=== PATIENT | female | born 1975 | race Two or more races ===

== ENCOUNTER 2024-03-20 17:19 | Emergency (ER) | payer MEDICAID, SELFPAY ==
--- NOTE | 2024-03-20 17:22 | EKG_ITS ---
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
[2024-03-20 17:35] VITALS: BP 147/91; PULSE 63; RESP 18; TEMP 37.2; O2SAT 96; BMI 50.4
--- NOTE | 2024-03-20 17:35 | XR_ITS ---
Examination: PA lateral chest 2 views TECHNIQUE: Upright PA lateral chest 2 views Exam date and time: March 20, 2024 1746 hours Comparison May 06, 2021 INDICATIONS: Chest pain beginning 3 days ago FINDINGS: Normal heart size No pneumonia or pulmonary edema The osseous structures are intact IMPRESSION: No active disease
--- NOTE | 2024-03-20 17:36 | PD.EDRME ---
Rapid Medical Screening Exam RME Arrival date/time: 03/20/24 17:19 49-year-old female presents emergency department complains of chest pain and back pain Chief Complaint: Chest Pain Time Seen by Provider: 03/20/24 17:22
[2024-03-20 18:22] LABS: Basophils # (Auto) 0.1 Thou/mm3 (0.0-0.2); Basophils % (Auto) 1 % (0-2.5); Eosinophils # (Auto) 1.4 Thou/mm3 (0.0-0.5); Eosinophils % (Auto) 16 % (0-10); Hematocrit 37.7 % (36.0-46.0); Hemoglobin 11.9 g/dL (12.0-16.0); Immature Granulocytes % (Auto) 0 % (0-0); Immature Granulocytes Auto 0.02 Thou/mm3 (0.00-0.00); Lymphocytes # (Auto) 1.8 Thou/mm3 (1.0-4.8); Lymphocytes % (Auto) 21 % (10-50); Mean Corpuscular HGB Conc 31.6 g/dl (31.0-37.0); Mean Corpuscular Hemoglobin 25.2 pg (25.0-35.0); Mean Corpuscular Volume 80 fL (80-100); Monocytes # (Auto) 0.5 Thou/mm3 (0.0-0.8); Monocytes % (Auto) 5 % (0-12); Neutrophils # (Auto) 5.1 Thou/mm3 (1.8-7.7); Neutrophils % (Auto) 58 % (37-80); Nucleated Red Blood Cell % 0 /100 WBC (0); Platelet Count 250 Thou/mm3 (140-440); RDW Standard Deviation 52.5 fL (36.4-46.3); Red Blood Count 4.72 Miln/mm3 (4.00-5.20); White Blood Count 8.8 Thou/mm3 (3.6-11.0)
[2024-03-20 18:54] LABS: HCG,Qualitative Serum Negative
[2024-03-20 18:58] LABS: B-Type Natriuretic Peptide 20 pg/mL (0-100)
[2024-03-20 18:59] LABS: Alanine Aminotransferase 21 U/L (10-49); Albumin, Serum 4.2 gm/dL (3.5-5.0); Albumin/Globulin Ratio 1.5 (1.2-2.2); Alkaline Phosphatase 97 U/L (46-116); Anion Gap 4 (7-16); Aspartate Amino Transferase 26 U/L (0-34); BUN/Creatinine Ratio 11 Ratio (12-20); Bilirubin,Total 0.4 mg/dL (0.3-1.2); Blood Urea Nitrogen 9 mg/dL (9-23); Calcium 9.5 mg/dL (8.3-10.6); Calcium (Corrected) 9.5 mg/dL (8.5-10.1); Carbon Dioxide 28.1 mMol/L (20.0-31.0); Chloride 106 mMol/L (98-107); Creatinine (Component) 0.8 mg/dL (0.6-1.3); Estimated Creatinine Clearance 114.4 mL/min (>60); Globulin 2.8 gm/dL (2.3-3.5); Glucose 93 mg/dL (74-106); Lipase 46 U/L (12-53); Osmolality,Calculated 274 (275-295); Potassium 3.9 mMol/L (3.4-5.1); Sodium 138 mMol/L (136-145); Troponin I < 0.002 ng/mL (0.0-0.045); eGFR > 60 See Note
--- NOTE | 2024-03-20 19:31 | PD.EDCHEST ---
ED Chest Pain RME/HPI General Chief Complaint: Chest Pain Stated Complaint: LEFT SIDED CHEST PAIN RAD TO BACK AND LEFT ARM Time Seen by Provider: 03/20/24 17:22 Source: patient Arrival date/time: 03/20/24 17:19 This is a 49-year-old female presented to the emergency department with complaints of left chest pain that radiates from her back into her left arm. 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 Patient denied no nausea no vomiting no diaphoresis or retrosternal radiating pain. Patient did not attempt any interventions or take any OTC medications prior to ED visit. Patient denies any other associated symptoms or aggravating factors. No modifying factors, no radiation, no migration. Mode of arrival: ambulatory Limitations: no limitations RME / HPI RME / HPI narrative: 03/20/24 17:19 49-year-old female presents emergency department complains of chest pain and back pain Related Data Previous Rx's ?Medication ?Instructions ?Recorded acetaminophen 650 mg 650 mg PO Q8H PRN fever or pain 05/13/19 tablet,extended release #30 tabs benzonatate 100 mg capsule See Rx Instructions .Route 05/13/19 (Alenasalon Perlchana) .COMPLEX cough #30 caps cetirizine 5 mg-pseudoephedrine ER 1 tab PO Q12H #20 tabs 05/13/19 120 mg tablet,extended release,12hr (Zyrtec-D) ibuprofen 600 mg tablet 600 mg PO Q8H PRN fever or pain 05/13/19 #30 tabs ipratropium bromide 21 mcg (0.03 See Rx Instructions .Route 05/13/19 %) nasal spray .COMPLEX #30 mL methylprednisolone 4 mg tablets in See Rx Instructions PO PER PKG DIR 05/13/19 a dose pack (Medrol (Kunal)) #21 tabs benzonatate 100 mg capsule 100 mg PO TID PRN cough #20 caps 01/12/21 (Tessalon Priscilla) hydrocodone 5 mg-acetaminophen 325 1 tab PO Q8H PRN pain #10 tabs 01/15/21 mg tablet promethazine-DM 6.25 mg-15 mg/5 mL 5 ml PO Q6H PRN cough #473 mL 04/07/21 oral syrup ibuprofen 800 mg tablet (IBU) 800 mg PO Q8H PRN fever or pain 03/20/24 #20 tabs Allergies Allergy/AdvReac Type Severity Reaction Status Date / Time No Known Allergies Allergy Verified 04/07/21 16:23 Review of Systems Review of Systems Systems Reviewed: All systems reviewed, normal except as documented Narrative Review of Systems: Gen: No fever, no chills, no weight loss EYES: No discharge, no visual changes, no pain HEENT: No ear pain, no congestion, no sore throat PULM: No shortness of breath, no cough, no congestion CV: +chest pain, no dyspnea on exertion, no palpitations GI: No nausea, no vomiting, no diarrhea, no pain, no constipation : No frequency, no urgency,? no dysuria Musc/skel: No joint pain, +upper back pain Skin: No rash? ED Exam General Limitations: Present no limitations General appearance: Present alert and in no apparent distress Head Head exam: Present atraumatic Eye Eye exam: Present normal appearance, PERRL and EOMI ENT ENT exam: Present normal exam, normal oropharynx and mucous membranes moist Neck Neck exam: Present normal inspection, full ROM and trachea midline Chest Chest inspection: Present normal inspection and symmetric chest wall rise Respiratory Respiratory exam: Present normal lung sounds bilaterally Cardiovascular Cardiovascular exam: Present regular rate, normal rhythm and normal heart sounds Abdominal Exam Abdominal exam: Present soft and normal bowel sounds Extremities Exam Extremities exam: Present normal inspection and full ROM Back Exam Back exam: Present normal inspection and full ROM Neurological Exam Neurological exam: Present alert, oriented X3 and CN II-XII intact Psychiatric Psychiatric exam: Present normal affect and normal mood Skin Skin exam: Present warm, dry, intact and normal color Course Quality Measures none Orders Category Date Time Status EKG (ED ONLY) *Do not use* NOW Care 03/20/24 17:22 Completed EKG (ED Only) Stat Exams 03/20/24 17:22 Draft XR chest 2V Stat Exams 03/20/24 17:35 Completed B-Type Natriuretic Peptide Stat Lab 03/20/24 18:03 Completed CBC Stat Lab 03/20/24 18:03 Completed Comprehensive Metabolic Panel Stat Lab 03/20/24 18:03 Completed HCG,Qualitative Serum Stat Lab 03/20/24 18:03 Completed Lipase Stat Lab 03/20/24 18:03 Completed Troponin I Stat Lab 03/20/24 18:03 Completed Ketorolac Inj [Toradol Inj] Med 03/20/24 19:36 Discontinued 60 mg IM X1 ONE Vital Signs Vital signs: Vital Signs Temperature 99 F 03/20/24 17:35 Pulse Rate 63 03/20/24 17:35 Respiratory Rate 18 03/20/24 17:35 Blood Pressure 147/91 H 03/20/24 17:35 Pulse Oximetry (%) 96 03/20/24 17:35 Oxygen Delivery Method Room Air 03/20/24 17:35 Chest Pain Patient data External records reviewed:: [facility] previous records Clinical information provided by:: patient Social determinants that could affect healthcare access:: none Patient has the following chronic illnesses:: no How is presenting disease/condition affected by chronic disease/condition?: no chronic disease Evaluation data The following diagnostics were reviewed and interpreted by me:: lab results and radiology exam(s) Lab and/or radiology exams considered but not ordered:: no Interpretation Summary: Examination: PA lateral chest 2 views TECHNIQUE: Upright PA lateral chest 2 views Exam date and time: March 20, 2024 1746 hours Comparison May 06, 2021 INDICATIONS: Chest pain beginning 3 days ago FINDINGS: Normal heart size No pneumonia or pulmonary edema The osseous structures are intact IMPRESSION: No active disease Medications / Prescriptions Medications or Prescriptions considered but not ordered:: no Medication administrations:: Medication Administration History Discontinued Medications Ketorolac Tromethamine (Ketorolac Inj 60 Mg/2 Ml Vial) 60 mg IM X1 ONE Stop: 03/20/24 19:37 Last Admin: 03/20/24 19:56 Dose: 60 mg Documented By: SE All medications administered and effective Consultations Consultation(s) initiated? (list below): No Diagnosis Chest Pain Differential Diagnosis: fracture of rib, pneumothorax, atypical chest pain and costochondritis Most likely diagnosis given after review of the tests above:: Costochondritis Admission Indicated Admission indicated?: not indicated Admission Request Was there a request for admission?: No Disposition Plan Disposition Plan: Discharge Discharge Attestation Discharge Attestation: The patient and all family members were given an opportunity to ask questions and understood the discharge instructions. Discharge instructions specifically effects, indications for sooner follow up or return to the emergency department, and the expected course of current diagnosis. Patient condition: Stable Discharge Plan Plan Patient Disposition: HOME (Self Care) Prescriptions/Referrals Prescriptions/Med Rec: New ibuprofen [IBU] 800 mg tablet 800 mg PO Q8H PRN (Reason: fever or pain) Qty: 20 0RF No Action acetaminophen 650 mg tablet extended release 650 mg PO Q8H PRN (Reason: fever or pain) Qty: 30 0RF Rx Instructions: swallow whole; do not crush, chew, break, dissolve, cut, or open ibuprofen 600 mg tablet 600 mg PO Q8H PRN (Reason: fever or pain) Qty: 30 0RF Rx Instructions: prn pain / fever ipratropium bromide 0.03 % spray,non-aerosol See Rx Instructions .Route .COMPLEX Qty: 30 0RF Rx Instructions: 2 sprays to each nostril q6-8 hours prn congestion; wait 30 seconds between sprays methylprednisolone [Medrol (Kunal)] 4 mg tablets,dose pack See Rx Instructions PO PER PKG DIR Qty: 21 0RF Rx Instructions: PO PER PKG DIR benzonatate [Tessalon Perles] 100 mg capsule See Rx Instructions .Route .COMPLEX Qty: 30 0RF Rx Instructions: 1-2 cap(s) PO Q8 hours prn cough cetirizine-pseudoephedrine [Zyrtec-D] 5-120 mg tablet extended release 12 hr 1 tab PO Q12H Qty: 20 0RF benzonatate [Tessalon Perles] 100 mg capsule 100 mg PO TID PRN (Reason: cough) Qty: 20 0RF hydrocodone-acetaminophen 5-325 mg tablet 1 tab PO Q8H MDD 3 PRN (Reason: pain) Qty: 10 0RF promethazine-DM 6.25-15 mg/5 mL syrup 5 ml PO Q6H PRN (Reason: cough) Qty: 473 0RF Referrals: Jayce Marshall MD [Primary Care Provider] - In 1 week Problem List Clinical Impression: Costalchondritis Patient/Caregiver Discharge Instructions Discharge Activity: activity as tolerated Education Materials: ED Chest Wall Pain, Costochondritis Additional Instructions: - Please use medication as directed. As we discussed you might need a H. pylori test that can be done by your primary doctor. Sure you follow-up with your clinic or doctor in 2 days for follow-up care. Please return to the emergency department this any worsening symptoms or change in condition. 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 Fernandez
[2024-03-20] MEDS: KETOROLAC INJ 60 MG/2 ML VIAL IM (19:56)
[2024-03-20 20:13] VITALS: RESP 18
== END 2024-03-20 20:13 | disposition home or self-care (01) ==
PROVIDERS: Nurse Practitioner Primary Care; Emergency Provider Emergency Medicine; PCP Family Medicine
DX: M94.0 Chondrocostal junction syndrome [Tietze] (principal); R94.31 Abnormal electrocardiogram [ECG] [EKG]
CPT/HCPCS: 36415; 71046; 80053; 83690; 83880; 84484; 84703; 85025; 93005; 96372; 99283; J1885